=== PATIENT | female | born 1995 | race Caucasian/White ===

== ENCOUNTER 2018-09-04 22:48 | Emergency (ER) | payer OTHER ==
[~2018-09-04] VITALS: Ht 167.6 cm; Wt 61.4 kg
[2018-09-04 22:53] VITALS: TEMP 97.2
[2018-09-04 23:10] LABS: COLLECTION METHOD CLEAN CATCH
[2018-09-04 23:19] LABS: PH 6 (5-8); SQUAMOUS EPITHELIAL 0-2 /hpf; URINE APPEARANCE Clear; URINE BACTERIA Rare /hpf; URINE BILIRUBIN Negative (NEGATIVE); URINE BLOOD 3+ (NEGATIVE); URINE COLOR Amber; URINE GLUCOSE Negative (NEGATIVE); URINE KETONE Negative (NEGATIVE); URINE LEUKOCYTE ESTERASE 1+ (NEGATIVE); URINE NITRATE Negative (NEGATIVE); URINE PROTEIN(semi-quant) 2+ (NEGATIVE); URINE RBC 20-50 /hpf; URINE UROBILINOGEN Negative (NEGATIVE)
[2018-09-04] MEDS ORDERED: PYRIDIUM200 M1 PO (23:25)
[2018-09-04] MEDS ORDERED: CEPHALEXIN500 M1 PO (23:25)
[2018-09-04 23:37] VITALS: BP 109/68; PULSE 70
== END 2018-09-04 23:40 | disposition home or self-care (01) ==
LOC: COL.ER 22:48
PROVIDERS: Physician Assistant
DX: N39.0 Urinary tract infection, site not specified (principal)